=== PATIENT | female | born 1975 | race Two or more races ===

== ENCOUNTER 2024-06-06 12:44 | Emergency (ER) | payer MEDICAID, SELFPAY ==
[2024-06-06 12:57] VITALS: BP 123/69; PULSE 68; RESP 18; TEMP 36.7; O2SAT 98; BMI 28.3
--- NOTE | 2024-06-06 13:02 | XR_ITS ---
Examination: PA lateral chest 2 views TECHNIQUE: Upright PA lateral chest 2 views Exam date and time: June 06, 2024 1327 hours INDICATIONS: Shortness of breath coughing fever beginning 3 days ago FINDINGS: Normal heart size Lungs are clear. The osseous structures are intact IMPRESSION: No active disease
--- NOTE | 2024-06-06 13:02 | PD.EDURI ---
Upper Respiratory Inf. RME/HPI General Chief Complaint: Flu Like Symptoms Stated Complaint: runny nose, sorethroat fever x 3wks Time Seen by Provider: 06/06/24 13:03 Source: patient Arrival date/time: 06/06/24 12:44 48-year-old female with no known medical history presents to the emergency room with a chief complaint of a runny nose, sore throat, fevers x 3 weeks. Mode of arrival: ambulatory Limitations: no limitations Related Data Previous Rx's ?Medication ?Instructions ?Recorded ibuprofen 800 mg tablet 800 mg PO TID PRN pain #30 tabs 01/07/24 methylprednisolone 4 mg tablets in 4 mg PO QDAY #21 tabs 01/17/24 a dose pack (Medrol (Vern)) cyclobenzaprine 10 mg tablet 10 mg PO BID #20 tabs 03/14/24 ibuprofen 800 mg tablet 800 mg PO Q6H PRN pain #14 tabs 03/14/24 Allergies Allergy/AdvReac Type Severity Reaction Status Date / Time No Known Allergies Allergy Verified 06/06/24 12:47 Review of Systems Review of Systems Systems Reviewed: All systems reviewed, normal except as documented Constitutional Constitutional: Reports system reviewed and no additional complaints, except as documented, Denies fatigue, Denies fever(s), Denies headache(s) and Denies weakness Eyes Eyes: Reports system reviewed and no additional complaints, except as documented, Denies blurry vision and Denies change in vision ENT Ears, Nose, Mouth, and Throat: Reports system reviewed and no additional complaints, except as documented, Denies otalgia, Denies headache(s), Denies nasal congestion, Denies throat swelling and Denies vertigo Cardiovascular Cardiovascular: Reports system reviewed and no additional complaints, except as documented, Denies chest pain, Denies dyspnea and Denies dyspnea on exertion Respiratory Respiratory: Reports system reviewed and no additional complaints, except as documented, Denies chest congestion, Denies cough, Denies dyspnea, Denies dyspnea on exertion and Denies wheezing Gastrointestinal Gastrointestinal: Reports system reviewed and no additional complaints, except as documented, Denies abdominal pain, Denies cramping, Denies nausea and Denies vomiting Genitourinary Genitourinary: Reports system reviewed and no additional complaints, except as documented Musculoskeletal Musculoskeletal: Reports system reviewed and no additional complaints, except as documented and Denies back pain Integumentary/Breasts Skin/Breast: Reports system reviewed and no additional complaints, except as documented and Denies wounds Neurologic Neurologic: Reports system reviewed and no additional complaints, except as documented, Denies confusion, Denies headache(s), Denies lack of coordination, Denies vertigo and Denies weakness Psychiatric Psychiatric: Reports system reviewed and no additional complaints, except as documented, Denies anxiety, Denies confusion, Denies depression, Denies paranoia, Denies suicidal ideation and Denies tactile hallucinations Endocrine Endocrine: Reports system reviewed and no additional complaints, except as documented and Denies fatigue Hematologic/Lymphatic Hematologic/Lymphatic: Reports system reviewed and no additional complaints, except as documented and Denies lymphadenopathy Allergic/Immunologic Allergic/Immunologic: Reports system reviewed and no additional complaints, except as documented, Denies throat swelling, Denies urticaria and Denies wheezing Past Medical History Past Medical History NEUROLOGIC: Negative Neurological Disorders or Seizures CARDIAC: Negative Cardiac Disorders, Congestive Heart Failure, Edema, Cellulitis or Varicose Veins RESPIRATORY: Positive Pneumonia (HOSP 2001); Negative Chronic Obstructive Pulmonary Disease (COPD), Tuberculosis or Sleep Apnea GASTROINTESTINAL: Negative Gastrointestinal Disorders or Hepatitis GENITOURINARY: Negative Genitourinary Disorders or Renal Disease REPRODUCTIVE: Positive Previous Pregnancies (X5); Negative Pelvic Inflammatory Disease MUSCULOSKELETAL: Negative Musculoskeletal Disorders ENDOCRINE: Positive Endocrine Disorders; Negative Diabetes Mellitus Type 1 or Diabetes Mellitus Type 2 HEMATOLOGIC: Negative Blood Disorders or Anemia OTHER HISTORY: Positive Hospitalization ([facility] 2001) and Measles; Negative Autoimmune Disease, Shingles, Falls, Blood Transfusions, Blood Transfusion Reaction, Anesthesia Reactions, Chemotherapy, Radiation Therapy, MRSA, VRSA, Vancomycin-Resistant Enterococci, Chicken Pox, Mumps, Clostridium Difficile or Cancer Family History FAMILY HISTORY: Positive Family Surgery (MOTHER); Negative Family Psychiatric Problems, Family Respiratory Disorders, Family Cardiac Disorders, Family Gastrointestinal Problems, Family Cancer or Family Anesthesia Reaction Surgical History SURGICAL: Positive Section (X1); Negative Cardiac Surgery Social History SMOKING STATUS: Never smoker ED Exam General Limitations: Present no limitations General appearance: Present alert and in no apparent distress Head Head exam: Present atraumatic Eye Eye exam: Present normal appearance, PERRL and EOMI ENT ENT exam: Present normal exam, normal oropharynx and mucous membranes moist Neck Neck exam: Present normal inspection, full ROM and trachea midline Chest Chest inspection: Present normal inspection and symmetric chest wall rise Respiratory Respiratory exam: Present normal lung sounds bilaterally; Absent respiratory distress, wheezes, stridor, accessory muscle use or prolonged expiratory phase Cardiovascular Cardiovascular exam: Present regular rate, normal rhythm and normal heart sounds Abdominal Exam Abdominal exam: Present soft and normal bowel sounds Extremities Exam Extremities exam: Present normal inspection and full ROM Back Exam Back exam: Present normal inspection and full ROM Neurological Exam Neurological exam: Present alert, oriented X3 and CN II-XII intact Psychiatric Psychiatric exam: Present normal affect and normal mood Skin Skin exam: Present warm, dry, intact and normal color Course Quality Measures none Orders Category Date Time Status Bedside COVID-19 Antigen Test NOW Care 06/06/24 13:02 Completed Bedside Influenza A&B Antigen Test NOW Care 06/06/24 13:02 Completed XR chest 2V Stat Exams 06/06/24 13:02 Completed Strep A Rapid Stat Lab 06/06/24 13:25 Completed Vital Signs Vital signs: Vital Signs Temperature 98.1 F 06/06/24 12:57 Pulse Rate 68 06/06/24 12:57 Respiratory Rate 18 06/06/24 12:57 Blood Pressure 123/69 06/06/24 12:57 Pulse Oximetry (%) 98 06/06/24 12:57 Oxygen Delivery Method Room Air 06/06/24 12:57 O2 saturation 98% within normal limits Upper Respiratory Infection MDM Narrative MDM Narrative:: 48-year-old female with no known medical history presents to the emergency room with a chief complaint of a runny nose, sore throat, fevers x 3 weeks. Clinically the patient appears nontoxic and in no apparent distress. Physical examination shows clear bilateral lung sounds with no evidence of wheezing stridor or respiratory distress. X-ray was completed and was negative for any pneumonic infiltrates. COVID-19 and influenza were both negative. Patient was discharged and educated to follow-up with primary care provider and return to the emergency room for any evidence of worsening signs or symptoms Patient data External records reviewed:: [facility] previous records Clinical information provided by:: patient Social determinants that could affect healthcare access:: none Patient has the following chronic illnesses:: No chronic illness How is presenting disease/condition affected by chronic disease/condition?: no chronic disease Evaluation data The following diagnostics were reviewed and interpreted by me:: lab results and radiology exam(s) Lab and/or radiology exams considered but not ordered:: Labs and radiology exams considered and ordered Interpretation Summary: Chest [id number]: Normal heart size Lungs are clear. The osseous structures are intact IMPRESSION: No active disease Medications / Prescriptions Medications or Prescriptions considered but not ordered:: No medication given Medication administrations:: No medication given Consultations Consultation(s) initiated? (list below): No Diagnosis Upper Respiratory Differential Diagnosis: upper respiratory infection, viral infection, bronchitis and influenza Most likely diagnosis given after review of the tests above:: Upper respiratory infection Admission Indicated Admission indicated?: not indicated Admission Request Was there a request for admission?: No Disposition Plan Disposition Plan: Discharge Discharge Attestation Discharge Attestation: The patient and all family members were given an opportunity to ask questions and understood the discharge instructions. Discharge instructions specifically effects, indications for sooner follow up or return to the emergency department, and the expected course of current diagnosis. Patient condition: Stable Discharge Plan Plan Patient Disposition: HOME (Self Care) Disposition Comment: Stable Prescriptions/Referrals Prescriptions/Med Rec: No Action ibuprofen 800 mg tablet 800 mg PO TID PRN (Reason: pain) Qty: 30 0RF methylprednisolone [Medrol (Vern)] 4 mg tablets,dose pack 4 mg PO QDAY Qty: 21 0RF cyclobenzaprine 10 mg tablet 10 mg PO BID Qty: 20 0RF ibuprofen 800 mg tablet 800 mg PO Q6H PRN (Reason: pain) Qty: 14 0RF Referrals: Jesica Costa PA-C [Primary Care Provider] - In 1 week Problem List Clinical Impression: Upper respiratory infection, viral Patient/Caregiver Discharge Instructions Education Materials: ED URI, Viral, No Abx (Adult) Additional Instructions: Damian un seguimiento con leal proveedor de atenci?n primaria en las pr?ximas 24 a 48 horas. Se complet? la radiograf?a y fue negativa para posibles infiltrados neum?nicos. Barbara resultados de COVID-19 e influenza fueron negativos. La causa m?s probable de esto es anahi infecci?n de las v?as respiratorias superiores que es de naturaleza viral. Damian un seguimiento con leal proveedor de atenci?n primaria y regrese a la josh de emergencias si hay evidencia de que los signos o s?ntomas empeoran. Print Language: [place] Stand Alone Forms: [employer] Award Info., Patient Portal Info Letter PA/RAILROAD ACCOUNTANT Supervising Physician PA/RAILROAD ACCOUNTANT Supervising Physician: Dr. Small
[2024-06-06 13:54] LABS: Strep A Rapid Negative (Negative)
== END 2024-06-06 14:48 | disposition home or self-care (01) ==
PROVIDERS: Nurse Practitioner Family; Emergency Provider Emergency Medicine; PCP Physician Assistant
DX: J06.9 Acute upper respiratory infection, unspecified (principal)
CPT/HCPCS: 71046; 87400; 87651; 87811; 99283

== ENCOUNTER 2025-05-20 08:49 | Emergency (ER) | payer MEDICAID, SELFPAY ==
--- NOTE | 2025-05-20 08:56 | EKG_ITS ---
[facility] Test Date: 2025-05-20 Pat Name: DANE SELBY Department: Room: - Gender: Female [employer]: : 1975 Requested By: Lavell Dietrich Order Number: [id number] Reading MD: Lavell Dietrich Measurements Intervals [place] Rate: 77 P: 63 CT: 143 QRS: 4 QRSD: 98 T: 28 QT: 375 QTc: 426 Interpretive Statements SINUS RHYTHM Compared to ECG 10/20/2021 09:51:27 Sinus arrhythmia no longer present /[id number]
[2025-05-20 09:06] VITALS: BP 131/82; PULSE 71; RESP 16; TEMP 36.9; O2SAT 98; BMI 29.7
--- NOTE | 2025-05-20 09:11 | EDNOTE_ITS ---
ED Abdominal Pain RME/HPI General Chief Complaint: Chest Pain Stated complaint: CHEST PAIN RADIATING L) ARM & ABD X 7 DAYS Time seen by provider: 05/20/25 09:12 Arrival date/time: 05/20/25 08:49 RME / HPI RME / HPI narrative: See MDM for Dr. Small's HPI documentation. Related Data Previous Rx's ?Medication ?Instructions ?Recorded ibuprofen 800 mg tablet 800 mg PO TID PRN pain #30 t abs 01/07/24 methylprednisolone 4 mg tablets in 4 mg PO QDAY #21 ta bs 01/17/24 a dose pack (Medrol (Vern)) cyclobenzaprine 10 mg tablet 10 mg PO BID #20 tabs ibuprofen 800 mg tablet 800 mg PO Q6H PRN pain #14 t abs 03/14/24 famotidine 40 mg tablet 40 mg PO .bedtime #30 tabs 1 07/21/24 omeprazole 40 mg capsule,delayed 40 mg PO QDAY #30 cap s 05/20/25 release ondansetron 4 mg disintegrating 4 mg PO TID PRN nausea and 05/20/25 tablet vomiting 30 days #10 tabs Allergies Allergy/AdvReac Type Severity Reaction Status Date / Time No Known Allergies Allergy Verified 05/20/25 08:55 Review of Systems Review of Systems Systems Reviewed: All systems reviewed, normal except as documented Past Medical History Past Medical History NEUROLOGIC: Negative Neurological Disorders or Seizures CARDIAC: Negative Cardiac Disorders, Congestive Heart Failure, Edema, Cellulitis or Varicose Veins RESPIRATORY: Positive Pneumonia; Negative Chronic Obstructive Pulmonary Disease (COPD), Tuberculosis or Sleep Apnea GASTROINTESTINAL: Negative Gastrointestinal Disorders or Hepatitis GENITOURINARY: Negative Genitourinary Disorders or Renal Disease REPRODUCTIVE: Positive Previous Pregnancies; Negative Pelvic Inflammatory Disease MUSCULOSKELETAL: Negative Musculoskeletal Disorders ENDOCRINE: Positive Endocrine Disorders; Negative Diabetes Mellitus Type 1 or Diabetes Mellitus Type 2 HEMATOLOGIC: Negative Blood Disorders or Anemia OTHER HISTORY: Positive Hospitalization and Measles; Negative Autoimmune Disease, Shingles, Falls, Blood Transfusions, Blood Transfusion Reaction, Anesthesia Reactions, Chemotherapy, Radiation Therapy, MRSA, VRSA, Vancomycin-Resistant Enterococci, Chicken Pox, Mumps, Clostridium Difficile or Cancer Family History FAMILY HISTORY: Positive Family Surgery; Negative Family Psychiatric Problems, Family Respiratory Disorders, Family Cardiac Disorders, Family Gastrointestinal Problems, Family Cancer or Family Anesthesia Reaction Surgical History SURGICAL: Positive Section; Negative Cardiac Surgery Social History SMOKING STATUS: Never smoker ED Exam Narrative Physical exam: See MDM for Dr. Small's physical exam documentation. Course Quality Measures none Orders Category Date Time Status EKG (ED ONLY) *Do not use* NOW Care 05/20/25 08:56 Completed Saline [Insert IV] NOW Care 05/20/25 09:[address] abdomen pelvis wo con Stat Exams 05/20/25 09:16 Completed EKG (ED Only) Stat Exams 05/20/25 08:56 Draft US gall bladder Stat Exams 05/20/25 09:16 Completed Amylase Stat Lab 05/20/25 09:37 Completed Bilirubin,Direct Stat Lab 05/20/25 09:37 Completed CBC Stat Lab 05/20/25 09:37 Completed CMP [Comprehensive Metabolic Panel] Stat Lab 05/20/25 09:37 Completed HCG,Qualitative Serum Stat Lab 05/20/25 09:37 Completed Lipase Stat Lab 05/20/25 09:37 Completed Magnesium Stat Lab 05/20/25 09:37 Completed UA, C/S IF [Urinalysis, C/S if Indicated] Stat Lab 05/20/25 10:41 Completed Famotidine Inj [Pepcid Inj] Med 05/20/25 09:15 Discontinued 20 mg IVP X1 ONE Ketorolac Inj [Toradol Inj] Med 05/20/25 09:15 Discontinued 30 mg IVP X1 ONE Morphine* Inj Med 05/20/25 10:35 Discontinued 2 mg IVP X1 ONE Morphine* Inj Med 05/20/25 09:15 Discontinued 4 mg IV X1 ONE Ondansetron Inj [Zofran Inj] Med 05/20/25 09:15 Discontinued 4 mg IVP X1 ONE Pantoprazole Inj [Protonix Inj] Med 05/20/25 09:15 Discontinued 40 mg IVP X1 ONE Sodium Chloride 0.9% 1000 ml [Ns] 1,000 ml Med 05/20/25 09:15 Discontinued IV 999 mls/hr Vital Signs Vital signs: Vital Signs Temperature 98.5 F 05/20/25 09:06 Pulse Rate 71 05/20/25 09:06 Respiratory Rate 16 05/20/25 09:06 Blood Pressure 131/82 H 05/20/25 09:06 Pulse Oximetry (%) 98 05/20/25 09:06 Oxygen Delivery Method Room Air 05/20/25 09:06 Abdominal Pain MDM MDM Narrative MDM Narrative:: This section includes all my notes and documentations, including HPI, PE, and ED course. Temo Small MD HPI: 49-year-old female here with several days of epigastric pain and vomiting, worse with eating. Had appendectomy in the past. No other complaints. ROS: All negative except as documented in HPI. Physical Exam: General: Alert and oriented. Appears uncomfortable. Eyes: Conjunctivae and lids clear. ENT: No nasal congestion. Neck: Supple. Heart: RRR. Lungs: No respiratory distress. Good air movement. No rhonchi, wheezing, rales. Abdomen: Soft with epigastric pain. Normal bowel sounds. No distension. No rebound or guarding. Back: No CVA tenderness. Skin: Warm and dry. Neuro: Alert and oriented X 3. I reviewed all diagnostic test results: My interpretation of the EKG is sinus rhythm with no ST-T changes. My review of the gallbladder US report is: NAD. My review of the CT abdomen pelvis report is: NAD. Blood tests and urine tests are unremarkable. At this point, diagnoses include: Stomach ulcer Treatment here included: IVF Pepcid 20 mg IV Toradol 30 mg IV Morphine 2 mg IV Zofran 2 mg IV Protonix 40 mg IV Significant improvement noted. Recommended for outpatient workup. Based on my best medical judgment, made decision no further evaluation or treatment indicated at this time. Patient understands and agrees to the discharge instructions customized and printed, see below. Discharge instructions from Dr. Small: ?After evaluation, your symptoms are due to stomach ulcer (see attached handout). There is no emergency such as appendicitis needing emergent surgery. And your gallbladder is normal. ?To help heal the ulcer, take Omeprazole 40 mg every morning and Famotidine 40 mg at bedtime for a week then as needed. ?Zofran for nausea/vomiting. Clear liquid diet for 24 hours. Then slowly advance diet as tolerated. ?Avoid food and beverages that can trigger and worsen ulcers. See attached handout. ?See a private doctor on 05/22/2025 for recheck. To make sure there is no serious intra-abdominal condition, ask for help with more investigation not available here in the ER. Such as EGD or scoping the stomach, colonoscopy or scoping the colon, and referral to see retail business development manager. Ask to review all test results and official radiology reports, to make sure you receive all necessary follow-ups and monitoring. ?Seek immediate medical care with worsening or with any concerns. Temo Small MD Patient data External records reviewed:: [facility] previous records (Per chart review, patient was seen here on 06/06/24 for viral URI.) Clinical information provided by:: patient Social determinants that could affect healthcare access:: none Patient has the following chronic illnesses:: none How is presenting disease/condition affected by chronic disease/condition?: no chronic disease Evaluation data The following diagnostics were reviewed and interpreted by me:: lab results, radiology exam(s) and EKG tracing(s) (My interpretation of the EKG: NSR (77 bpm) with no ST-T changes. Temo Small MD) Lab and/or radiology exams considered but not ordered:: none Interpretation Summary: I reviewed all diagnostic test results: My interpretation of the EKG is sinus rhythm with no ST-T changes. My review of the gallbladder US report is: NAD. My review of the CT abdomen pelvis report is: NAD. Blood tests and urine tests are unremarkable. Medications / Prescriptions Medications or Prescriptions considered but not ordered:: none Medication administrations:: Medication Administration History Discontinued Medications Famotidine (Famotidine Inj 10 Mg/Ml Vial 2 Ml) 20 mg IVP X1 ONE Stop: 05/20/25 09:16 Last Admin: 05/20/25 09:41 Dose: 20 mg Documented By: LF Sodium Chloride (Ns) 1,000 mls @ 999 mls/hr IV .Q1H1M ONE Stop: 05/20/25 10:15 Last Infusion: 05/20/25 10:39 Dose: Infused Documented By: Admin: 05/20/25 09:38 Dose: 999 mls/hr Documented By: LF Ketorolac Tromethamine (Ketorolac Inj 30 Mg/Ml Vial) 30 mg IVP X1 ONE Stop: 05/20/25 09:16 Last Admin: 05/20/25 09:42 Dose: 30 mg Documented By: LF Morphine Sulfate (Morphine Sulf Inj 4 Mg/Ml Vial) 4 mg IV X1 ONE Stop: 05/20/25 09:16 Last Admin: 05/20/25 10:35 Dose: Not Given Documented By: VL Non-Admin Reason: Patient Refused Morphine Sulfate (Morphine Sulf Inj 4 Mg/Ml Vial) 2 mg IVP X1 ONE Stop: 05/20/25 10:36 Last Admin: 05/20/25 10:39 Dose: 2 mg Documented By: BILL Ondansetron HCl (Ondansetron Inj 2 Mg/Ml Inj 2 Ml) 4 mg IVP X1 ONE; Protocol Stop: 05/20/25 09:16 Last Admin: 05/20/25 09:40 Dose: 4 mg Documented By: DALTON Pantoprazole Sodium (Pantoprazole Inj 40 Mg Vial) 40 mg IVP X1 ONE Stop: 05/20/25 09:16 Last Admin: 05/20/25 09:38 Dose: 40 mg Documented By: DALTON Treatment here included: IVF Pepcid 20 mg IV Toradol 30 mg IV Morphine 2 mg IV Zofran 2 mg IV Protonix 40 mg IV Consultations Consultation(s) initiated? (list below): No Diagnosis Differential diagnosis abdominal pain: acute appendicitis, calculus of kidney, constipation, diverticulitis, endometriosis, gastroenteritis, pancreatitis, small bowel obstruction and other (GERD, gastritis, PUD, biliary colic) Most likely diagnosis given after review of the tests above:: Stomach ulcer Admission Indicated Admission indicated?: not indicated Explain why admission is indicated or not indicated:: With significant improvement and no condition needing emergent intervention, there was no indication for admission. Admission Request Was there a request for admission?: No Disposition Plan Disposition Plan: Discharge Discharge Attestation Discharge Attestation: The patient and all family members were given an opportunity to ask questions and understood the discharge instructions. Discharge instructions specifically effects, indications for sooner follow up or return to the emergency department, and the expected course of current diagnosis. Patient condition: Stable Discharge Plan Plan Patient Disposition: HOME (Self Care) Prescriptions/Referrals Prescriptions/Med Rec: New famotidine 40 mg tablet 40 mg PO .bedtime Qty: 30 0RF omeprazole 40 mg capsule,delayed release(DR/EC) 40 mg PO QDAY Qty: 30 0RF ondansetron 4 mg tablet,disintegrating 4 mg PO TID PRN (Reason: nausea and vomiting) 30 Days Qty: 10 0RF No Action ibuprofen 800 mg tablet 800 mg PO TID PRN (Reason: pain) Qty: 30 0RF methylprednisolone [Medrol (Vern)] 4 mg tablets,dose pack 4 mg PO QDAY Qty: 21 0RF cyclobenzaprine 10 mg tablet 10 mg PO BID Qty: 20 0RF ibuprofen 800 mg tablet 800 mg PO Q6H PRN (Reason: pain) Qty: 14 0RF Referrals: Jesica Costa PA-C [Primary Care Provider] - In 1 week Problem List Clinical Impression: Stomach ulcer Patient/Caregiver Discharge Instructions Discharge Activity: activity as tolerated Education Materials: ED PEPTIC ULCER vs GASTRITIS Additional Instructions: Instrucciones de ramón del Dr. Small: ?Tras la evaluaci?n, krista s?ntomas se deben a anahi ?lcera estomacal (consulte el folleto adjunto). No se trata de anahi emergencia, filemon anahi apendicitis que requiera cirug?a urgente. [place] ves?cula biliar est? normal. ?Para ayudar a curar la ?lcera, tome Omeprazol 40 mg todas las ma?anas y Famotidina 40 mg al acostarse tavo anahi semana y luego seg?n sea necesario. ?[place] Zofran para las n?useas y los v?mitos. Siga anahi dieta de l?quidos jeanine tavo 24 horas. Luego, reintroduzca los alimentos s?lidos gradualmente seg?n los tolere. ?Evite los alimentos y bebidas que puedan desencadenar o empeorar las ?lceras. Consulte el folleto adjunto. ?Consulte con un m?dico particular el 22/05/2025 para anahi revisi?n. Para asegurarse de que no haya ninguna afecci?n intraabdominal grave, solicite m?s pruebas que no est?n disponibles aqu? en la josh de emergencias. Por ejemplo, anahi endoscopia digestiva ramón (EGD) o anahi colonoscopia, y anahi derivaci?n a un gastroenter?logo. Solicite revisar todos los resultados de las pruebas y los informes radiol?gicos oficiales para asegurarse de recibir todo el seguimiento y la monitorizaci?n necesarios. ?Busque atenci?n m?dica inmediata si los s?ntomas empeoran o si tiene alguna inquietud. Discharge instructions from Dr. Small: ?After evaluation, your symptoms are due to stomach ulcer (see attached handout).? There is no emergency such as appendicitis needing emergent surgery. And your gallbladder is normal. ?To help heal the ulcer, take Omeprazole 40 mg every morning and Famotidine 40 mg at bedtime for a week then as needed. ?Zofran for nausea/vomiting.? Clear liquid diet for 24 hours.? Then slowly ad underwood diet as tolerated. ?Avoid food and beverages that can trigger and worsen ulcers.? See attached handout. ?See a private doctor on 05/22/2025 for recheck. To make sure there is no serious intra-abdominal condition, ask for help with more investigation not available here in the ER.? Such as EGD or scoping the stomach, colonoscopy or scoping the colon, and referral to see retail business development manager. Ask to review all test results and official radiology reports, to make sure you receive all necessary follow-ups and monitoring. ?Seek immediate medical care with worsening or with any concerns. Print Language: Yakut Stand Alone Forms: [employer] Award Info., Patient Portal Info Letter
--- NOTE | 2025-05-20 09:16 | XR_ITS ---
Examination: CT abdomen and pelvis without contrast. Coronal 3-D reconstructions. Sagittal 2-D reconstructions. Date and time of exam: May 20, 2025, 1003 hours INDICATIONS: Abdominal pain 7 days, appendectomy history CTDI: vol (mGy): 8.83 DLP: (mGycm): 469 Technique: Axial images of the abdomen have been obtained, 3 mm slice thickness Intravenous contrast material has not been administered. Low dose protocols were performed. One or more of the following dose reduction techniques were used; automated exposure control, adjustment of the mA and/or KV according to patient size, use of iterative reconstruction technique. Findings: No visualized liver or splenic lesions No gallstones No pancreatic or adrenal mass No renal or ureteral calculi, no hydronephrosis Aorta normal size Mildly fluid distended small bowel loops Small lymph nodes in the right lower mesentery Appendix is not visualized No diverticulitis Urinary bladder intact Anteverted uterus Mild osteopenia IMPRESSION: Negative for cholelithiasis, negative for pancreatitis No renal or ureteral calculi, no hydronephrosis Absent appendix Mildly fluid distended small bowel loops, consider ileus, enteritis such as Crohn's disease, clinical correlation advised If early small bowel obstruction is a clinical consideration recommend 3 way abdominal series follow-up
--- NOTE | 2025-05-20 09:16 | XR_ITS ---
Examination: Abdomen sonogram, Limited Date and time of exam: May 20, 2025, 0944 hours INDICATIONS: Upper abdominal pain today epigastric pain and vomiting Technique: Real-time chinchilla scale transabdominal sonographic images of the upper abdomen obtained. Findings: Negative for gallstones Gallbladder wall 0.2 cm There is fluid adjacent to the gallbladder Common bile duct 0.3 cm Pancreatic head 3.3 cm Liver 17.3 cm smooth contour Normal hepatopetal portal venous flow Patent IVC IMPRESSION: Negative for cholelithiasis Gallbladder wall measures 0.2 cm although there is fluid adjacent to the gallbladder wall, clinical correlation advised, consider HIDA scan or MRCP follow-up if cholecystitis is a clinical consideration
[2025-05-20] MEDS: SODIUM CHLORIDE 0.9% 1000 ML 1,000 ML 999 ML IV (09:38)
[2025-05-20] MEDS: ONDANSETRON INJ 2 MG/ML INJ 2 ML 4 MG IVP (09:40)
[2025-05-20] MEDS: FAMOTIDINE INJ 10 MG/ML VIAL 2 ML 20 MG IVP (09:41)
[2025-05-20] MEDS: KETOROLAC INJ 30 MG/ML VIAL IVP (09:42)
[2025-05-20 09:56] LABS: Basophils # (Auto) 0.0 Thou/mm3 (0.0-0.2); Basophils % (Auto) 0 % (0-2.5); Eosinophils # (Auto) 0.0 Thou/mm3 (0.0-0.5); Eosinophils % (Auto) 1 % (0-10); Hematocrit 40.2 % (36.0-46.0); Hemoglobin 12.9 g/dL (12.0-16.0); Immature Granulocytes Auto 0.01 Thou/mm3 (0.00-0.00); Lymphocytes # (Auto) 0.7 Thou/mm3 (1.0-4.8); Lymphocytes % (Auto) 10 % (10-50); Mean Corpuscular HGB Conc 32.1 g/dl (31.0-37.0); Mean Corpuscular Hemoglobin 27.2 pg (25.0-35.0); Mean Corpuscular Volume 85 fL (80-100); Monocytes # (Auto) 0.4 Thou/mm3 (0.0-0.8); Monocytes % (Auto) 5 % (0-12); Neutrophils # (Auto) 5.7 Thou/mm3 (1.8-7.7); Neutrophils % (Auto) 84 % (37-80); Nucleated Red Blood Cell # 0.00 Thou/mm3 (0.00-0.00); Nucleated Red Blood Cell % 0 /100 WBC (0); Platelet Count 215 Thou/mm3 (140-440); RDW Standard Deviation 38.1 fL (36.4-46.3); Red Blood Count 4.75 Miln/mm3 (4.00-5.20); White Blood Count 6.8 Thou/mm3 (3.6-11.0)
[2025-05-20 10:26] VITALS: BP 145/85; PULSE 68; RESP 18; TEMP 37; O2SAT 98
[2025-05-20 10:35] LABS: HCG,Qualitative Serum Negative
[2025-05-20] MEDS: MORPHINE SULF INJ 4 MG/ML VIAL 2 MG IVP (10:39)
[2025-05-20 11:21] LABS: Collection Type, Urine Clean Catch
[2025-05-20 11:27] LABS: Alanine Aminotransferase 13 U/L (10-49); Albumin, Serum 4.5 gm/dL (3.5-5.0); Albumin/Globulin Ratio 1.4 (1.2-2.2); Alkaline Phosphatase 75 U/L (46-116); Anion Gap 10 (7-16); Aspartate Amino Transferase 19 U/L (0-34); BUN/Creatinine Ratio 22 Ratio (12-20); Bilirubin,Direct 0.1 mg/dL (0.0-0.3); Bilirubin,Total 0.6 mg/dL (0.3-1.2); Blood Urea Nitrogen 11 mg/dL (9-23); Calcium 8.8 mg/dL (8.3-10.6); Calcium (Corrected) 8.8 mg/dL (8.5-10.1); Carbon Dioxide 22.9 mMol/L (20.0-31.0); Chloride 106 mMol/L (98-107); Creatinine (Component) 0.5 mg/dL (0.6-1.3); Estimated Creatinine Clearance 134.5 mL/min (>60); Globulin 3.3 gm/dL (2.3-3.5); Glucose 107 mg/dL (74-106); Lipase 30 U/L (12-53); Magnesium 1.8 mg/dL (1.6-2.6); Osmolality,Calculated 276 (275-295); Potassium 3.8 mMol/L (3.4-5.1); Sodium 139 mMol/L (136-145); Total Protein 7.8 gm/dL (5.7-8.2); eGFR > 60 See Note
[2025-05-20 11:38] LABS: Bilirubin,Urine Negative (Negative); Blood,Urine 1+ (Negative); Clarity,Urine Clear (Clear/Hazy); Color,Urine Lt-Yellow (Lt Yel-Yel); Culture Indicated,Urine Not Indicated; Glucose, Urine Negative (Negative); Ketones,Urine Negative (Negative); Leukocyte Esterase,Urine Negative (Negative); Nitrite,Urine Negative (Negative); PH,Urine 6.5 (5.0-7.0); Protein,Urine Negative (Neg - Trace); RBC,Urine 1 /hpf (0-3); Specific Gravity,Urine 1.011 (1.001-1.035); Squamous Epithelial Cell,Urine 3 /hpf (0-5); Urobilinogen,Urine Negative mg/dL (0.0-1.0); WBC,Urine 1 /hpf (0-5)
[2025-05-20 12:26] VITALS: BP 125/77; PULSE 64; RESP 19; TEMP 37; O2SAT 99
[2025-05-20 13:07] LABS: Amylase 45 U/L (30-118)
== END 2025-05-20 12:27 | disposition home or self-care (01) ==
PROVIDERS: Emergency Provider Emergency Medicine; PCP Physician Assistant
DX: K25.9 Gastric ulcer, unspecified as acute or chronic, without hemorrhage or perforation (principal); R10.13 Epigastric pain; R11.2 Nausea with vomiting, unspecified
CPT/HCPCS: 36415; 74176; 76705; 80053; 81001; 82150; 82248; 83690; 83735; 84703; 85025; 93005; 96361; 96374; 96375; 99284; J1885; J2270; J2405; J2470; J3490; J7030